=== PATIENT | female | born 1970 | race African-American/Black ===

== ENCOUNTER 2016-11-14 11:20 | Emergency (ER) | payer SELFPAY ==
[~2016-11-14] VITALS: Ht 157.5 cm; Wt 51.2 kg
[2016-11-14 11:33] VITALS: BP 114/78
[2016-11-14] MEDS ORDERED: FLUORESCEIN SODIUM 1MG/STRIP OP ONE (11:45)
[2016-11-14] MEDS ORDERED: TETRACAINE 0.5% OPHTH DROPS 4ML OP ONE (11:45)
== END 2016-11-14 13:26 | disposition home or self-care (01) ==
LOC: ER 12:14
DX: H10.023 Other mucopurulent conjunctivitis, bilateral (principal); F17.210 Nicotine dependence, cigarettes, uncomplicated; Z88.5 Allergy status to narcotic agent; Z90.710 Acquired absence of both cervix and uterus; Z90.49 Acquired absence of other specified parts of digestive tract
CPT/HCPCS: 99282

== ENCOUNTER 2017-04-25 09:50 | Inpatient (IN) | payer SELFPAY ==
[~2017-04-25] VITALS: Ht 309.9 cm; Wt 54.0 kg
[2017-04-25] MEDS ORDERED: IPRATROPIUM BROMIDE (0.02%) 0.5MG/2.5ML NEB HHN STA ×2 (10:11→12:16)
[2017-04-25] MEDS ORDERED: ALBUTEROL (0.083%) 2.5MG/3ML NEB HHN STA ×2 (10:11→12:16)
[2017-04-25] MEDS ORDERED: METHYLPREDNISOLONE SOD SUCC 125 MG/2 ML VIAL IV STA (10:11)
[2017-04-25] MEDS ORDERED: MAGNESIUM 2 G PREMIX 50 ML IV ONE (10:15)
[2017-04-25] MEDS ORDERED: SODIUM CHLORIDE 0.9% 1000ML BAG (SEPSIS BOLUS) IV ONE (10:15)
[2017-04-25] MEDS ORDERED: ALBUTEROL (0.5%) 2.5MG/0.5ML NEB HHN ONE (10:22)
[2017-04-25 10:47] LABS: BASOPHILS % 1.1 % (0.0-2.0); EOSINOPHILS % 5.4 % (0.0-5.0); HEMATOCRIT. 40.5 % (36.0-48.0); HEMOGLOBIN. 13.7 g/dL (12.0-16.0); LYMPHOCYTES % 29.9 % (20.0-50.0); MEAN CORPUSCULAR HEMOGLOBIN 32.4 pg (28.0-32.0); MEAN CORPUSCULAR VOLUME 95.4 fL (81.0-99.0); MEAN PLATELET VOLUME 10.2 fl (7.4-10.4); MONOCYTES % 14.5 % (2.0-8.0); NEUTROPHILS % 49.1 % (40.0-76.0); PLATELET 133 x1000/uL (130-400); RED BLOOD CELL COUNT 4.24 mill/uL (4.2-5.4); RED CELL DISTRIBUTION WIDTH 13.1 % (11.6-14.6)
[2017-04-25 10:57] LABS: INR 1.1; PROTHROMBIN TIME 11.8 sec (9.4-11.6)
[2017-04-25 11:02] LABS: HCG SCREEN NEGATIVE
[2017-04-25 11:04] LABS: CARBON DIOXIDE 24 mEq/L (21-32); CHLORIDE 107 mEq/L (98-107)
[2017-04-25] MEDS ORDERED: PREDNISONE 20MG TABLET PO ONE (12:00)
[2017-04-25] MEDS ORDERED: LEVOFLOXACIN 500MG PREMIX 100 ML IV ONE (12:15)
[2017-04-25] MEDS ORDERED: HYDROCODONE/ACETAMINOPHEN 10/325MG TABLET PO PRN (12:30)
[2017-04-25] MEDS ORDERED: ACETAMINOPHEN 325MG TABLET PO PRN (12:30)
[2017-04-25] MEDS ORDERED: HYDROCODONE/ACETAMINOPHEN 5/325MG TABLET PO PRN (12:30)
[2017-04-25] MEDS ORDERED: DIPHENHYDRAMINE 50MG/ML VIAL IV PRN (12:30)
[2017-04-25] MEDS ORDERED: CLONIDINE 0.1MG TABLET PO PRN (12:30)
[2017-04-25] MEDS ORDERED: GUAIFENESIN 200MG/10ML SUGAR FREE UDC PO PRN (12:30)
[2017-04-25] MEDS ORDERED: ONDANSETRON HCL 4MG/2ML VIAL IV PRN (12:30)
[2017-04-25] MEDS ORDERED: IPRATROPIUM/ALBUTEROL 0.5-3(2.5)MG/3ML NEB INH PRN (12:30)
[2017-04-25 14:30] VITALS: BP 127/79
[2017-04-25 14:33] LABS: CREATINE KINASE 152 IU/L (26-192); TROPONIN I < 0.02 ng/mL (0.00-0.04)
[2017-04-25 14:35] VITALS: BP 127/79
[2017-04-25] MEDS ORDERED: IPRATROPIUM/ALBUTEROL 0.5-3(2.5)MG/3ML NEB HHN PRN (15:45)
[2017-04-25 16:00] VITALS: BP 112/53
[2017-04-25] MEDS ORDERED: IPRATROPIUM/ALBUTEROL 0.5-3(2.5)MG/3ML NEB HHN SCH (16:00)
[2017-04-25] MEDS ORDERED: AZITHROMYCIN 500 MG in DEXT 5% WATER 250 ML IV SCH (16:00)
[2017-04-25] MEDS: IPRATROPIUM/ALBUTEROL 0.5-3(2.5)MG/3ML NEB INH SCH ×2 (16:46→20:41)
[2017-04-25] MEDS: BUDESONIDE 0.5MG/2ML NEB HHN SCH ×2 (16:46→20:40)
[2017-04-25] MEDS: METHYLPREDNISOLONE SOD SUCC 40 MG/ML VIAL IV SCH ×2 (17:18→22:00)
[2017-04-25] MEDS ORDERED: POTASSIUM CHLORIDE 20MEQ TABLET SR PO NR (18:00)
[2017-04-25 23:57] LABS: CREATINE KINASE 178 IU/L (26-192); TROPONIN I < 0.02 ng/mL (0.00-0.04)
[2017-04-26] VITALS (7 sets, daily range): BP systolic 86–123; BP diastolic 47–78
[2017-04-26] MEDS: IPRATROPIUM/ALBUTEROL 0.5-3(2.5)MG/3ML NEB INH SCH ×6 (00:34→21:24)
[2017-04-26 00:44] LABS: GLUCOSE URINE 3+ (NEGATIVE); KETONES URINE NEGATIVE (NEGATIVE); LEUKOCYTE ESTERASE URINE NEGATIVE (NEGATIVE); NITRITE URINE NEGATIVE (NEGATIVE); OCCULT BLOOD URINE 1+ (NEGATIVE); PH URINE 5.5 (4.5-8.0); PROTEIN URINE NEGATIVE (NEGATIVE); SPECIFIC GRAVITY URINE 1.035 (1.005-1.030); UROBILINOGEN URINE 0.2 E.U./dL (0.2-1.0)
[2017-04-26 00:49] LABS: CLARITY URINE CLEAR (CLEAR); COLOR URINE STRAW (YELLOW)
[2017-04-26 01:21] LABS: *AMPHETAMINES SCREEN URINE NEGATIVE (NEGATIVE); *BARBITURATES SCREEN URINE NEGATIVE (NEGATIVE); *BENZODIAZEPINES SCREEN URINE NEGATIVE (NEGATIVE); *COCAINE SCREEN URINE NEGATIVE (NEGATIVE); CANNABINOID URINE SCREEN NEGATIVE (NEGATIVE); METHADONE URINE SCREEN NEGATIVE (NEGATIVE); PHENCYCLIDINE URINE SCREEN NEGATIVE (NEGATIVE)
[2017-04-26 01:22] LABS: OPIATES URINE SCREEN PRESUMTIVE POSITIVE (NEGATIVE)
[2017-04-26 07:09] LABS: BG BASE EXCESS -3.8 mmol/L (-2.0-2.0); BG CARBOXYHEMOGLOBIN 0.4 % (0.5-1.5); BG DEOXYHEMOGLOBIN 2.9 % (0.0-5.0); BG HCO3 ACT 19.2 mmol/L (22.0-26.0); BG METHEMOGLOBIN 0.2 % (0.0-1.5); BG OXYGEN SATURATION 97.1 % (92.0-98.5); BG OXYHEMOGLOBIN 96.5 % (94.0-97.0); BG PCO2 29.2 mmHg (35.0-45.0); BG PH 7.435 (7.350-7.450); BG PO2 88.6 mmHg (75.0-100.0); BG SAMPLE SITE RIGHT RADIAL; BG TOTAL HEMOGLOBIN 13.8 g/dL (12.0-18.0); BG VENT MODE ROOM AIR
[2017-04-26 07:27] LABS: HEMOGLOBIN. 12.1 g/dL (12.0-16.0); MEAN CORPUSCULAR HEMOGLOBIN 32.1 pg (28.0-32.0); MEAN CORPUSCULAR VOLUME 95.6 fL (81.0-99.0); MEAN PLATELET VOLUME 10.9 fl (7.4-10.4); PLATELET 131 x1000/uL (130-400); RED BLOOD CELL COUNT 3.76 mill/uL (4.2-5.4); RED CELL DISTRIBUTION WIDTH 13.3 % (11.6-14.6)
[2017-04-26] MEDS: METHYLPREDNISOLONE SOD SUCC 40 MG/ML VIAL IV SCH (07:45)
[2017-04-26 08:34] LABS: CARBON DIOXIDE 23 mEq/L (21-32); CHLORIDE 108 mEq/L (98-107)
[2017-04-26 08:39] LABS: HDL CHOLESTEROL 56 mg/dL (40-59); LDL CHOLESTEROL 66 mg/dL (5-100); T4 FREE 0.85 ng/dL (0.76-1.46)
[2017-04-26 14:27] LABS: PLATELET ESTIMATE NORMAL
[2017-04-26] MEDS ORDERED: PROMETHAZINE/DEXTROMETHORPHAN 6.25-15MG/5ML BOTTLE 120ML PO PRN (14:30)
[2017-04-26] MEDS: MONTELUKAST SODIUM 10MG TABLET PO SCH (17:54)
[2017-04-26] MEDS: PREDNISONE 20MG TABLET PO SCH (17:54)
[2017-04-26] MEDS: AZITHROMYCIN 500 MG in DEXT 5% WATER 250 ML IV SCH (18:07)
[2017-04-26] MEDS: BUDESONIDE 0.5MG/2ML NEB HHN SCH (21:24)
[2017-04-26] MEDS: FAMOTIDINE 20MG/2ML VIAL IV SCH (21:39)
[2017-04-26] MEDS: LORATADINE 10MG TABLET PO SCH (21:52)
[2017-04-27] VITALS: BP 108/68
[2017-04-27 04:00] VITALS: BP 110/66
[2017-04-27] MEDS: IPRATROPIUM/ALBUTEROL 0.5-3(2.5)MG/3ML NEB INH SCH ×7 (05:16→20:56)
[2017-04-27] MEDS: BUDESONIDE 0.5MG/2ML NEB HHN SCH ×2 (07:54→20:56)
[2017-04-27 08:00] VITALS: BP 140/77
[2017-04-27] MEDS: PREDNISONE 20MG TABLET PO SCH ×2 (09:57→18:04)
[2017-04-27] MEDS: FAMOTIDINE 20MG/2ML VIAL IV SCH ×2 (09:57→20:22)
[2017-04-27 12:00] VITALS: BP 114/43
[2017-04-27 16:00] VITALS: BP 105/63
[2017-04-27] MEDS: MONTELUKAST SODIUM 10MG TABLET PO SCH (18:04)
[2017-04-27] MEDS: AZITHROMYCIN 500 MG in DEXT 5% WATER 250 ML IV SCH ×2 (18:08→18:13)
[2017-04-27 20:00] VITALS: BP 116/58
[2017-04-27] MEDS: LORATADINE 10MG TABLET PO SCH (20:22)
[2017-04-28] VITALS: BP 104/56
[2017-04-28] MEDS: IPRATROPIUM/ALBUTEROL 0.5-3(2.5)MG/3ML NEB INH SCH ×6 (01:02→20:00)
[2017-04-28 04:00] VITALS: BP 109/63
[2017-04-28 08:00] VITALS: BP 116/64
[2017-04-28] MEDS: BUDESONIDE 0.5MG/2ML NEB HHN SCH ×2 (09:17→20:00)
[2017-04-28] MEDS: FAMOTIDINE 20MG/2ML VIAL IV SCH ×2 (09:50→20:54)
[2017-04-28] MEDS: PREDNISONE 20MG TABLET PO SCH (09:50)
[2017-04-28 12:00] VITALS: BP 120/58
[2017-04-28] MEDS: METHYLPREDNISOLONE SOD SUCC 40 MG/ML VIAL IV SCH ×2 (15:59→23:18)
[2017-04-28 16:00] VITALS: BP 118/71
[2017-04-28] MEDS: MONTELUKAST SODIUM 10MG TABLET PO SCH (18:33)
[2017-04-28] MEDS: AZITHROMYCIN 500 MG in DEXT 5% WATER 250 ML IV SCH (18:37)
[2017-04-28 20:00] VITALS: BP 118/69
[2017-04-28] MEDS: LORATADINE 10MG TABLET PO SCH (20:54)
[2017-04-29] VITALS: BP 127/60
[2017-04-29] MEDS: IPRATROPIUM/ALBUTEROL 0.5-3(2.5)MG/3ML NEB INH SCH ×4 (00:24→12:51)
[2017-04-29 04:00] VITALS: BP 116/69
[2017-04-29] MEDS: METHYLPREDNISOLONE SOD SUCC 40 MG/ML VIAL IV SCH (06:09)
[2017-04-29 08:00] VITALS: BP 118/60
[2017-04-29] MEDS: FAMOTIDINE 20MG/2ML VIAL IV SCH (09:40)
[2017-04-29 12:00] VITALS: BP 122/62
[2017-04-29 12:48] VITALS: BP 122/62
== END 2017-04-29 13:10 | disposition home or self-care (01) | DRG 140 ==
LOC: ER 12:08 → INTOOBSV 12:11 → OBSVTOIN 12:11 → 6EST 12:11 → ENRESERV 13:07
PROVIDERS: ADMIT Internal Medicine; ATTEND Internal Medicine
DX: J44.0 Chronic obstructive pulmonary disease with (acute) lower respiratory infection (principal); J96.00 Acute respiratory failure, unspecified whether with hypoxia or hypercapnia; J45.901 Unspecified asthma with (acute) exacerbation; J20.9 Acute bronchitis, unspecified; F17.210 Nicotine dependence, cigarettes, uncomplicated; L30.9 Dermatitis, unspecified; Z90.710 Acquired absence of both cervix and uterus; Z88.5 Allergy status to narcotic agent; Z90.49 Acquired absence of other specified parts of digestive tract; Z71.6 Tobacco abuse counseling
CPT/HCPCS: 36415; 36600; 71010; 80048; 80053; 80061; 80305; 81001; 82375; 82550; 82805; 83605; 83880; 84439; 84484; 84703; 85025; 85610; 85730; 87040; 87086; 93005; 93970; 94640; 94644; 94664; 96365; 96366; 96368; 96375; 99291; J0456; J1956; J2920; J2930; J3475; J3490; J7030; J7040; J7060; J7512; J7611; J7620; J7626

== ENCOUNTER 2018-07-25 13:52 | Emergency (ER) | payer SELFPAY ==
[~2018-07-25] VITALS: Ht 157.5 cm; Wt 52.0 kg
[2018-07-25 16:11] VITALS: BP 130/78
== END 2018-07-25 17:40 | disposition home or self-care (01) ==
LOC: ER 13:52
DX: R55 Syncope and collapse (principal); F17.290 Nicotine dependence, other tobacco product, uncomplicated; J45.909 Unspecified asthma, uncomplicated; Z90.710 Acquired absence of both cervix and uterus; Z88.5 Allergy status to narcotic agent
CPT/HCPCS: 81025; 82962; 93005; 99283; 99406

== ENCOUNTER 2019-09-12 22:44 | Emergency (ER) | payer SELFPAY ==
[~2019-09-12] VITALS: Ht 157.5 cm; Wt 50.9 kg
[2019-09-13 06:12] VITALS: BP 124/84
== END 2019-09-13 06:12 | disposition left against medical advice (07) ==
LOC: ER 22:44
DX: Z53.21 Procedure and treatment not carried out due to patient leaving prior to being seen by health care provider (principal)

== ENCOUNTER 2019-10-17 00:06 | Emergency (ER) | payer BC ==
[~2019-10-17] VITALS: Ht 157.5 cm; Wt 49.0 kg
[2019-10-17] MEDS ORDERED: IPRATROPIUM BROMIDE (0.02%) 0.5MG/2.5ML NEB HHN STA (01:13)
[2019-10-17] MEDS ORDERED: METHYLPREDNISOLONE SOD SUCC 125 MG/2 ML VIAL IV STA (01:13)
[2019-10-17] MEDS ORDERED: ALBUTEROL (0.083%) 2.5MG/3ML NEB HHN STA (01:13)
[2019-10-17] MEDS ORDERED: ALBUTEROL (0.083%) 2.5MG/3ML NEB HHN ONE (01:45)
[2019-10-17 04:15] VITALS: BP 125/74
== END 2019-10-17 04:21 | disposition home or self-care (01) ==
LOC: ER 00:06
DX: J45.901 Unspecified asthma with (acute) exacerbation (principal); R06.82 Tachypnea, not elsewhere classified; F17.210 Nicotine dependence, cigarettes, uncomplicated; Z71.6 Tobacco abuse counseling
CPT/HCPCS: 71045; 94644; 96374; 99284; J2930; J7610; Z7610

== ENCOUNTER 2022-02-06 15:34 | Emergency (ER) | payer BC ==
[~2022-02-06] VITALS: Ht 157.5 cm; Wt 49.0 kg
[2022-02-06] MEDS ORDERED: ACETAMINOPHEN 325MG TABLET PO ONE (17:15)
[2022-02-06] MEDS ORDERED: IBUP-2029 MT (17:17)
[2022-02-06 18:06] VITALS: BP 134/81
== END 2022-02-06 17:50 | disposition home or self-care (01) ==
LOC: ER 15:34
DX: S93.491A Sprain of other ligament of right ankle, initial encounter (principal); W01.0XXA Fall on same level from slipping, tripping and stumbling without subsequent striking against object, initial encounter; R03.0 Elevated blood-pressure reading, without diagnosis of hypertension; F17.210 Nicotine dependence, cigarettes, uncomplicated; Z71.6 Tobacco abuse counseling; Y93.89 Activity, other specified; Y92.89 Other specified places as the place of occurrence of the external cause
CPT/HCPCS: 73610; 73630; 99284; 99406

== ENCOUNTER 2023-08-07 01:19 | Emergency (ER) | payer MEDICAID ==
[~2023-08-07] VITALS: Ht 157.5 cm; Wt 50.0 kg
[~2023-08-07 01:19] MED LIST: IBUP-2029 MT
[2023-08-07] MEDS ORDERED: ALBUTEROL (0.083%) 2.5MG/3ML NEB HHN STA (01:41)
[2023-08-07] MEDS ORDERED: METHYLPREDNISOLONE SOD SUCC 125MG/2ML (ACT-O-VIAL) IM STA (01:41)
[2023-08-07] MEDS ORDERED: IPRATROPIUM BROMIDE (0.02%) 0.5MG/2.5ML NEB HHN STA (01:41)
[2023-08-07 02:10] VITALS: PULSE 88; RESP 14; O2SAT 99
[2023-08-07] MEDS ORDERED: P50 MT (02:50)
[2023-08-07] MEDS ORDERED: ALBU18HF2 IH (02:50)
[2023-08-07 03:13] VITALS: BP 132/83; PULSE 80; RESP 14; TEMP 98
== END 2023-08-07 03:15 | disposition home or self-care (01) ==
LOC: ER 01:19
DX: J45.901 Unspecified asthma with (acute) exacerbation (principal); Z90.710 Acquired absence of both cervix and uterus; Z88.5 Allergy status to narcotic agent
CPT/HCPCS: 94664; 94640; 96372; 99283; Z7610 ×3; J2930

== ENCOUNTER 2023-09-04 11:36 | Emergency (ER) | payer MEDICAID ==
[~2023-09-04] VITALS: Ht 157.5 cm; Wt 50.0 kg
[~2023-09-04 11:36] MED LIST changes: +ALBU18HF2 IH; +P50 MT
[2023-09-04 11:47] VITALS: O2SAT 98
[2023-09-04] MEDS ORDERED: IPRATROPIUM BROMIDE (0.02%) 0.5MG/2.5ML NEB HHN STA (12:51)
[2023-09-04] MEDS ORDERED: ALBUTEROL (0.083%) 2.5MG/3ML NEB HHN SCH (13:00)
[2023-09-04] MEDS ORDERED: DEXAMETHASONE 2MG TABLET PO ONE (13:00)
[2023-09-04 13:08] VITALS: PULSE 92; RESP 24
[2023-09-04 15:00] VITALS: BP 133/78; PULSE 72; RESP 8; TEMP 98.7
== END 2023-09-04 15:57 | disposition home or self-care (01) ==
LOC: ER 11:36
DX: J20.8 Acute bronchitis due to other specified organisms (principal); B34.9 Viral infection, unspecified; Z90.710 Acquired absence of both cervix and uterus; Z88.5 Allergy status to narcotic agent; Z20.822 Contact with and (suspected) exposure to COVID-19
CPT/HCPCS: 87804 ×2; 71045; 94640; 99284; 87426; J8540; Z7610 ×3

== ENCOUNTER 2023-11-03 06:19 | Inpatient (IN) | payer MEDICAID, OTHER ==
[~2023-11-03] VITALS: Ht 157.5 cm; Wt 49.9 kg
[2023-11-03] MEDS: PREDNISONE 20MG TABLET PO STA (08:20)
[2023-11-03] MEDS: IPRATROPIUM BROMIDE (0.02%) 0.5MG/2.5ML NEB HHN STA ×2 (08:43→11:05)
[2023-11-03 08:44] VITALS: PULSE 105; RESP 15; O2SAT 95
[2023-11-03] MEDS: ALBUTEROL (0.083%) 2.5MG/3ML NEB HHN STA ×2 (08:44→11:05)
[2023-11-03 11:05] VITALS: PULSE 104; RESP 23; O2SAT 95
[2023-11-03 11:21] LABS: ALANINE AMINOTRANSFERASE 38 IU/L (10-49); ALBUMIN 4.9 g/dL (3.2-4.8); ASPARTATE AMINOTRANSFERASE 41 IU/L (<34); BILIRUBIN TOTAL 0.4 mg/dL (0.1-1.0); CALCIUM 9.2 mg/dL (8.7-10.4); CARBON DIOXIDE 23 mEq/L (21-32); CHLORIDE 106 mEq/L (98-107); CREATININE 0.8 mg/dL (0.6-1.0); GLUCOSE 99 mg/dL (70-105); POTASSIUM 3.9 mEq/L (3.5-5.1); SODIUM 138 mEq/L (136-145); TROPONIN I HIGH SENSITIVITY 4 ng/L (3.0-34); UREA NITROGEN BLOOD 11 mg/dL (9-23)
[2023-11-03 12:22] LABS: BASOPHILS % 0.4 % (0.0-2.0); HEMOGLOBIN. 14.3 g/dL (12.0-16.0); LYMPHOCYTES % 12.4 % (20.0-50.0); MEAN CORPUSCULAR HEMOGLOBIN 31.8 pg (28.0-32.0); MEAN CORPUSCULAR HGB CONC 33.2 g/dL (31.0-37.0); MEAN CORPUSCULAR VOLUME 95.9 fL (81.0-99.0); MEAN PLATELET VOLUME 10.6 fl (7.4-10.4); MONOCYTES % 3.6 % (2.0-8.0); NEUTROPHILS % 83.6 % (40.0-76.0); PLATELET 141 x1000/uL (130-400); RED BLOOD CELL COUNT 4.48 mill/uL (4.2-5.4); RED CELL DISTRIBUTION WIDTH 14.1 % (11.6-14.6); WHITE BLOOD COUNT 5.5 x1000/uL (4.5-11.0)
[2023-11-03 12:43] LABS: TROPONIN I HIGH SENSITIVITY < 4 ng/L (3.0-34)
[2023-11-03 13:51] VITALS: BP 105/71; PULSE 112; RESP 18; TEMP 96.8
[2023-11-03] MEDS ORDERED: DIPHENHYDRAMINE 50MG/ML VIAL IV PRN (15:00)
[2023-11-03] MEDS ORDERED: ACETAMINOPHEN 325MG TABLET PO PRN (15:00)
[2023-11-03] MEDS ORDERED: CLONIDINE 0.1MG TABLET PO PRN (15:00)
[2023-11-03] MEDS ORDERED: ONDANSETRON HCL 4MG/2ML INJ IV PRN (15:00)
[2023-11-03] MEDS ORDERED: IPRATROPIUM/ALBUTEROL 0.5-3(2.5)MG/3ML NEB HHN PRN (15:00)
[2023-11-03 20:00] VITALS: BP 119/60; PULSE 83; RESP 18; TEMP 100
[2023-11-04] VITALS (8 sets, daily range): BP systolic 112–132; BP diastolic 53–74; PULSE 83–106; RESP 18–20; TEMP 97.3–98.6; O2SAT 92–99
[2023-11-04] MEDS: IPRATROPIUM/ALBUTEROL 0.5-3(2.5)MG/3ML NEB HHN SCH (02:41)
[2023-11-04 07:43] LABS: ALANINE AMINOTRANSFERASE 29 IU/L (10-49); ALBUMIN 4.4 g/dL (3.2-4.8); ASPARTATE AMINOTRANSFERASE 29 IU/L (<34); BILIRUBIN TOTAL 0.4 mg/dL (0.1-1.0); CALCIUM 9.1 mg/dL (8.7-10.4); CARBON DIOXIDE 24 mEq/L (21-32); CHLORIDE 104 mEq/L (98-107); CREATININE 0.8 mg/dL (0.6-1.0); GLUCOSE 94 mg/dL (70-105); POTASSIUM 3.7 mEq/L (3.5-5.1); PROTEIN TOTAL 7.3 g/dL (6.0-8.3); SODIUM 138 mEq/L (136-145); UREA NITROGEN BLOOD 13 mg/dL (9-23)
[2023-11-04 07:47] LABS: BASOPHILS % 0.5 % (0.0-2.0); EOSINOPHILS % 0.5 % (0.0-5.0); HEMATOCRIT. 40.6 % (36.0-48.0); HEMOGLOBIN. 13.5 g/dL (12.0-16.0); LYMPHOCYTES % 27.2 % (20.0-50.0); MEAN CORPUSCULAR HEMOGLOBIN 31.7 pg (28.0-32.0); MEAN CORPUSCULAR HGB CONC 33.3 g/dL (31.0-37.0); MEAN CORPUSCULAR VOLUME 95.1 fL (81.0-99.0); MEAN PLATELET VOLUME 10.6 fl (7.4-10.4); NEUTROPHILS % 57.8 % (40.0-76.0); PLATELET 135 x1000/uL (130-400); RED BLOOD CELL COUNT 4.26 mill/uL (4.2-5.4); RED CELL DISTRIBUTION WIDTH 13.8 % (11.6-14.6); WHITE BLOOD COUNT 6.6 x1000/uL (4.5-11.0)
[2023-11-04] MEDS: PREDNISONE 20MG TABLET PO SCH (09:00)
== END 2023-11-04 13:10 | disposition short-term general hospital (02) | DRG 141 ==
LOC: ER 06:19 → 8WST 12:07 → EDBEDREQTM 12:09 → EDBEDREQ 12:09
PROVIDERS: ADMIT Internal Medicine; ATTEND Internal Medicine
DX: J45.901 Unspecified asthma with (acute) exacerbation (principal); J96.00 Acute respiratory failure, unspecified whether with hypoxia or hypercapnia; F17.210 Nicotine dependence, cigarettes, uncomplicated
CPT/HCPCS: 36415; 71045; 80053; 84484; 85025; 93970; 94640; 99291; J7512